=== PATIENT | male | born 1950 | race Caucasian/White ===

== ENCOUNTER 2020-03-25 23:24 | Emergency (ER) | payer MEDICARE, SELFPAY ==
[2020-03-25 23:25] VITALS: BP 191/84; PULSE 72; RESP 16; TEMP 36.2; O2SAT 98; BMI 24.8
--- NOTE | 2020-03-25 23:45 | ED_ITS ---
HPI - Wound/Laceration General Chief Complaint: Wound/Laceration Stated Complaint: cut on head Time Seen by Provider: 03/25/20 23:30 Source: patient Mode of arrival: Ambulatory History of Present Illness HPI narrative: 69-year-old gentleman with no significant medical issues or chronic medications presents with 2 small lacerations to his forehead after standing up and banging his head on the edge of a bed. He suffered no loss of consciousness and is not on blood thinners. Aside from the superficial lacerations has no other complaints today Related Data Allergies Allergy/AdvReac Type Severity Reaction Status Date / Time No Known Drug Allergies Allergy Verified 03/25/20 23:44 Review of Systems Review of Systems Narrative: Pertinent positive and negative findings as per HPI Remainder of review of systems is otherwise unremarkable for Constitutional: Fevers, chills, weakness ENT: No sore throat, neck pain, ear pain CV: Chest pain, palpitations, dyspnea on exertion Respiratory: Cough, wheeze, GI: Nausea, vomiting, diarrhea, Patient History Social History Smoking Status: Former smoker Smoking Status: Former smoker Substance Use Type: marijuana Exam Narrative Exam Narrative: General: Alert appropriate in no acute distress HEENT: There is a 2 cm laceration just above the right eyebrow and a a 1.5 cm partial-thickness laceration just superior to that. The larger wound is still bleeding somewhat. There is no associated abrasions or hematoma. Respiratory: Able to speak in full sentences, no obvious respiratory distress Skin: No obvious rashes, warm and dry Neurologic: Grossly intact no obvious asymmetries or abnormalities Psych, appropriate insight and affect, cooperative Initial Vital Signs Initial Vital Signs: Vital Signs Temperature 97.1 F L 03/25/20 23:25 Pulse Rate 72 03/25/20 23:25 Respiratory Rate 16 03/25/20 23:25 Blood Pressure 191/84 H 03/25/20 23:25 Pulse Oximetry 98 03/25/20 23:25 Procedures Laceration Repair Forehead, right side, : Site: face Side (If applicable): right Size (cm): 2 Description: linear Depth: simple, single layer Local Anesthetic: lidocaine 1% and with bicarb Amount of anesthesia used (mL): 2 Pre-repair: wound explored Skin layer closed with: nylon Size (cm): 4-0 Number of sutures: 3 Technique: simple, interrupted Mid forehead laceration: Site: face Side (If applicable): right Size (cm): 1.5 Description: linear Depth: simple, single layer Pre-repair: wound explored Skin layer closed with: dermabond Course Orders Ordered: Discontinued Medications Bacitracin (Bacitracin Oint 0.9 Gm Pckt) 1 applic TOP NOW ONE Stop: 03/25/20 23:49 Last Admin: 03/25/20 23:54 Dose: 1 applic Documented by: Lidocaine/Sodium Bicarbonate (Lido 1%/Sod Bicarb 8.4% (10ml) 10 Ml Syringe) 10 ml INJ NOW ONE Stop: 03/25/20 23:49 Last Admin: 03/25/20 23:54 Dose: 10 ml Documented by: Vital Signs Vital signs: Vital Signs - 8 hr 03/25/20 23:25 Temperature 97.1 F L Pulse Rate 72 Respiratory Rate 16 Blood Pressure 191/84 H Pulse Oximetry 98 MDM - Wound/Laceration MDM Narrative Medical decision making narrative: Otherwise healthy 69-year-old gentleman with 2 superficial lacerations to the right side of his forehead and no additional injuries or concerns. One is deep enough to require 3 sutures he tolerates this nicely. The other needs Dermabond and is nicely approximated when finished. He is safe for home discharge Discharge Plan Departure Patient Disposition: Home Clinical Impression: Laceration, Elevated blood pressure reading Instructions: DI for Laceration Repair, DI for High Blood Pressure, DI for Lace ration Repair -- Simple Activity Restrictions/Additional Instructions: Thank you for coming in this evening. The larger of your cuts did definitely need stitches. Three stitches were placed and can be removed on or about April 02. Please feel free to return to the emergency department and our nurses can remove them. The smaller of the wounds was shallow enough that skin glue was used to reapproximate those edges. You can take a shower you can let water gently run over the cuts and simply pat them dry. You can keep a Band-Aid over the stitches but that is not required As you noted, your blood pressure reading was elevated here in the emergency department. One episode of elevated blood pressure does not give you a diagnosis of hypertension, but does suggest that checking your blood pressure outside of the department and discussing this with your primary care physician makes sense If you have new or worsening symptoms or any complications with the wounds themselves, please feel free to come back to the emergency department.
[2020-03-25] MEDS: BACITRACIN OINT 0.9 GM PCKT 1 APPLIC TOP (23:54)
[2020-03-25] MEDS: LIDO 1%/SOD BICARB 8.4% (10ML) 10 ML SYRINGE INJ (23:54)
--- NOTE | 2020-03-26 00:11 | PC.NURSE ---
two lacerations. One smaller and superficial glued by provider. Other laceration closed with 3 sutures, antibiotic ointment applied
[2020-03-26 00:20] VITALS: BP 169/93; PULSE 76; RESP 12; O2SAT 98
== END 2020-03-26 00:20 | disposition home or self-care (01) ==
PROVIDERS: Emergency Provider Emergency Medicine
DX: S01.81XA Laceration without foreign body of other part of head, initial encounter (principal); W22.8XXA Striking against or struck by other objects, initial encounter; R03.0 Elevated blood-pressure reading, without diagnosis of hypertension
CPT/HCPCS: 12013; 99282; 99283

== ENCOUNTER 2021-09-14 12:08 | Emergency (ER) | payer MEDICARE, SELFPAY ==
[2021-09-14 12:13] VITALS: BP 126/81; PULSE 70; RESP 16; TEMP 36.6; O2SAT 98; BMI 25.8
--- NOTE | 2021-09-14 12:32 | DI.RAD.S_ITS ---
PROCEDURE: XR CHEST 1V INDICATIONS: chest pain TECHNIQUE: One view of the chest was acquired. COMPARISON: None. FINDINGS: Surgical changes and devices: None. Lungs and pleura: Lungs are clear. Small hiatal hernia. No pleural effusions or pneumothorax. Mediastinum: Mediastinal contours appear normal. Heart size is normal. Bones and chest wall: No suspicious bony lesions. Overlying soft tissues appear unremarkable. IMPRESSION: No acute cardiopulmonary abnormality. Small hiatal hernia. Dictated by: Anshu Lee M.D. on 09/14/2021 at 12:53 Approved by: Anshu Lee M.D. on 09/14/2021 at 12:54
--- NOTE | 2021-09-14 12:34 | ED_ITS ---
HPI - SOB/Dyspnea General Chief Complaint: Shortness of Breath/Dyspnea Stated Complaint: Sent by [facility] SOB Time Seen by Provider: 09/14/21 12:33 Source: patient Mode of arrival: Ambulatory Limitations: no limitations History of Present Illness HPI Narrative: The patient presents complaining of dyspnea on exertion, now occasional dyspnea at rest. He initially experienced symptoms about 1 year ago. He has no assoc iated chest pain. He is a nonsmoker. He was previously on lisinopril, lost weight and started working out and stopped the lisinopril. He has recently restarted lisinopril. Does not take aspirin. He has no history of lung disease, he has no known history of cardiac disease. He has no chest pain or dyspnea upon arrival. He has no diabetes of hyperlipidemia or high cholesterol. He probably has BPH. He does not take baby aspirin. He denies recent illness. It is noted that he had to go to the bathroom several times during his ER stay. He has no dysuria, just frequency. He also has nocturia. Related Data Previous Rx's Medication Instructions Recorded lisinopril 10 mg tablet 10 mg PO DAILY #30 tabs 09/14/21 metoprolol succinate 25 mg 25 mg PO DAILY #30 tabs 09/14/21 tablet,extended release 24 hr Allergies Allergy/AdvReac Type Severity Reaction Status Date / Time No Known Drug Allergies Allergy Verified 07/10/21 11:53 Review of Systems Constitutional Constitutional: Reports as per HPI, Denies body ache(s), Denies chills and Denies headache(s) ENT Ears, Nose, Mouth, and Throat: Denies dizziness, Denies headache(s), Denies sinus pain, Denies sinus pressure and Denies sore throat Cardiovascular Cardiovascular: Denies chest pain, Denies syncope, Denies rapid heart rate, Denies irregular heart rhythm and Reports dyspnea Respiratory Respiratory: Reports as per HPI, Denies chest congestion, Denies cough and Reports dyspnea Gastrointestinal Gastrointestinal: Denies abdominal pain, Denies change in stool character and Denies nausea Genitourinary Genitourinary: Denies dysuria, Denies dysuria, Denies testicular pain, Reports urinary frequency and Reports urinary hesitancy Musculoskeletal Musculoskeletal: Denies arthralgias, Denies back pain and Denies joint swelling Integumentary/Breasts Skin/Breast: Denies rash Neurologic Neurologic: Denies confusion, Denies dizziness, Denies syncope and Denies headache(s) Psychiatric Psychiatric: Denies confusion Hematologic/Lymphatic On Anticoagulants: No Patient History Medical History (Updated 09/14/21 @ 14:55 by Chi Puente MD) Hypertension Surgical History (Updated 09/14/21 @ 14:56 by Chi Puente MD) No significant past surgical history Social History Smoking Status: Former smoker Smoking Status: Former smoker Substance Use Type: marijuana Exam Initial Vital Signs Initial Vital Signs: Vital Signs Temperature 97.9 F 09/14/21 12:13 Pulse Rate 70 09/14/21 12:13 Respiratory Rate 16 09/14/21 12:13 Blood Pressure 126/81 09/14/21 12:13 Pulse Oximetry 98 09/14/21 12:13 Oxygen Delivery Method 09/14/21 12:13 Const General: cooperative, healthy appearing, well developed and well groomed Orientation: Orientation (Normal) [facility] Head: normocephalic and atraumatic Face and sinus: normal facial exam and sinuses nontender Mouth: oral mucosae normal Throat: posterior oropharynx normal Eyes General: Yes appearance normal, both eyes and all related structures Neck Neck: No JVD and other (No bruits) Chest Chest: normal inspection of the chest Resp Effort & Inspection: normal respiratory effort Auscultation: clear to auscultation bilaterally Cardio Rate: regular rate Rhythm: regular rhythm Heart Sounds: S1 normal, S2 normal, no click, no gallops and no murmurs GI Inspection: normal to inspection and non-distended Palpation: soft Auscultation: normal bowel sounds Back/Spine/Pelvis Back: normal to inspection Skin General: no rashes or lesions noted Neuro General: patient alert, patient awake, patient oriented x3 and no focal motor deficits Extrem General: normal to inspection, full ROM, no pedal edema and no calf tenderness Psych Appearance: grossly normal Course Course Course Narrative: The patient was asymptomatic upon arrival. His evaluation raises the concern of underlying CAD. He was started on metoprolol and aspirin, referred to local cardiology, Dr. Lua. Also, he very likely has BPH. He is referred to Dr. Bhatti, urology. Orders Ordered: ED Orders 09/14/21 12:32 XR chest 1V Stat 09/14/21 12:33 Complete Blood Count AUTO DIFF Stat Comprehensive Metabolic Panel Stat Lipase Stat Magnesium Stat Troponin & CK Cardiac Panel Stat Vital Signs Vital signs: Vital Signs - 8 hr 09/14/21 12:13 09/14/21 13:07 09/14/21 13:31 Temperature 97.9 F Pulse Rate 70 Respiratory Rate 16 Blood Pressure 126/81 174/89 H 152/69 H Pulse Oximetry 98 Oxygen Delivery Method Room Air MDM - SOB/Dyspnea Lab Data Result diagrams: 09/14/21 12:33 09/14/21 12:33 Labs: Lab Results 09/14/21 09/14/21 Range/Units 12:33 12:33 WBC 5.5 (4.5-11.0) X10^3/uL RBC 4.89 (4.5-5.9) X10^6/uL Hgb 14.0 (13.5-17.5) g/dL Hct 40.3 L (41-53) % MCV 82.3 (80-100) fL MCH 28.6 (26-34) PG MCHC 34.7 (30-36) % RDW 14.8 (11.6-14.8) % Plt Count 224 (150-400) X10^3/uL Neut % (Auto) 60.8 (50-75) % Lymph % (Auto) 24.2 L (25-40) % Rice % (Auto) 9.5 (3-14) % Eos % (Auto) 5.0 H (2-4) % Baso % (Auto) 0.5 (0-2) % Neut # (Auto) 3400 (0468-4155) /uL Lymph # (Auto) 1300 (9344-4034) /uL Rice # (Auto) 500 (0-900) /uL Eos # (Auto) 300 (0-450) /uL Baso # (Auto) 0 (0-100) /uL Sodium 141 (137-145) mmol/L Potassium 4.6 (3.4-5.1) mmol/L Chloride 108 H (98-107) mmol/L Carbon Dioxide 25 (22-32) mmol/L BUN 22 H (9-20) mg/dL Creatinine 0.78 (0.66-1.25) mg/dL Estimated GFR > 60 (>60) mL/min BUN/Creatinine Ratio 28.2 H (6-22) Glucose 101 (80-110) mg/dL Calcium 8.9 (8.4-10.2) mg/dL Magnesium 2.1 (1.6-2.3) mg/dL Total Bilirubin 0.5 (0.2-1.3) mg/dL AST 29 (17-59) IU/L ALT 15 (<50) IU/L Alkaline Phosphatase 78 (38-126) U/L Total Creatine Kinase 169 (55-170) U/L CK-MB (CK-2) 3.72 H (<2.37) ng/mL CK-MB (CK-2) Rel Index 2.2 (1.5-5.0) % Troponin I < 0.012 (0.01-0.034) ng/mL Total Protein 7.5 (6.3-8.2) g/dL Albumin 4.4 (3.5-5.0) g/dL Globulin 3.1 (1.7-4.1) g/dL Albumin/Globulin Ratio 1.4 (1.0-2.8) Lipase 105 (23-300) U/L Imaging Data Chest x-ray: Radiologist's Impression: No acute cardiopulmonary disease. ECG Data Attestation: I personally reviewed and interpreted this ECG as follows: (Normal sinus rhythm with occasional PVCs. Rate 66 beats per minute. Normal intervals. No acute ST elevation.) Discharge Plan Departure Patient Disposition: Home Clinical Impression: Dyspnea, Nocturia Instructions: Benign Prostatic Hyperplasia, DI for Shortness of Breath Activity Restrictions/Additional Instructions: Baby aspirin, 1 daily. Continue lisinopril 10 mg daily. Metoprolol 25 mg daily. Contact your doctor about a stress test, or follow-up with Dr. Lua, cardiology in [place], [place]. Call for an appointment. Your urinary issues indicate a large prostate. With your desire to avoid prescription medications, I would suggest [place] supplements. Follow-up with Urology, contact Dr. Bhatti for an appointment. Return the ER if you develop persistent shortness of breath or chest pain. Prescriptions: New metoprolol succinate 25 mg tablet extended release 24 hr 25 mg PO DAILY Qty: 30 1RF lisinopril 10 mg tablet 10 mg PO DAILY Qty: 30 1RF Referrals: Miscellaneous,Doctor, [Primary Care Provider] - Lamine Lua MD [Physician] - Marcel Bhatti MD [Physician] -
[2021-09-14 12:53] LABS: Add Manual Diff / Slide Review NO; Basophils Absolute Auto 0 /uL (0-100); Basophils Percent Auto 0.5 % (0-2); Eosinophils Absolute Auto 300 /uL (0-450); Hematocrit 40.3 % (41-53); Lymphocytes Absolute Auto 1300 /uL (1100-4500); Lymphocytes Percent Auto 24.2 % (25-40); Mean Corpuscular HGB Conc 34.7 % (30-36); Mean Corpuscular Hemoglobin 28.6 PG (26-34); Mean Corpuscular Volume 82.3 fL (80-100); Monocytes Absolute Auto 500 /uL (0-900); Monocytes Percent Auto 9.5 % (3-14); Neutrophils Absolute Auto 3400 /uL (1500-7000); Neutrophils Percent Auto 60.8 % (50-75); Platelet Count 224 X10^3/uL (150-400); Red Blood Cell Count 4.89 X10^6/uL (4.5-5.9); Red Cell Distribution Width 14.8 % (11.6-14.8); White Blood Cell Count 5.5 X10^3/uL (4.5-11.0)
[2021-09-14 13:00] LABS: Alanine Aminotransferase 15 IU/L (<50); Albumin 4.4 g/dL (3.5-5.0); Albumin Globulin Ratio 1.4 (1.0-2.8); Alkaline Phosphatase 78 U/L (38-126); Aspartate Aminotransferase 29 IU/L (17-59); BUN Creatinine Ratio 28.2 (6-22); Bilirubin Total 0.5 mg/dL (0.2-1.3); Blood Urea Nitrogen 22 mg/dL (9-20); Calcium 8.9 mg/dL (8.4-10.2); Carbon Dioxide 25 mmol/L (22-32); Chloride 108 mmol/L (98-107); Creatine Kinase 169 U/L (55-170); Estimated Glomerular Filt Rate > 60 mL/min (>60); Globulin 3.1 g/dL (1.7-4.1); Glucose 101 mg/dL (80-110); HEMOLYSIS < 15 (0-50); Lipase 105 U/L (23-300); Magnesium 2.1 mg/dL (1.6-2.3); Potassium 4.6 mmol/L (3.4-5.1); Sodium 141 mmol/L (137-145); Total Protein 7.5 g/dL (6.3-8.2)
[2021-09-14 13:07] VITALS: BP 174/89
[2021-09-14 13:12] LABS: Troponin I < 0.012 ng/mL (0.01-0.034)
[2021-09-14 13:16] LABS: CKMB % Relative Index 2.2 % (1.5-5.0); Creatine Kinase MB 3.72 ng/mL (<2.37)
[2021-09-14 13:31] VITALS: BP 152/69
[2021-09-14] MEDS: METOPROLOL IR 25 MG TABLET PO (14:40)
[2021-09-14] MEDS: ASPIRIN 81 MG CHEW TAB 324 MG PO (14:40)
[2021-09-14 14:42] VITALS: BP 165/88; PULSE 64; RESP 18; O2SAT 100
== END 2021-09-14 14:57 | disposition home or self-care (01) ==
PROVIDERS: Emergency Provider Emergency Medicine
DX: R06.00 Dyspnea, unspecified (principal); R35.1 Nocturia; R07.9 Chest pain, unspecified
CPT/HCPCS: 36415; 71045; 80053; 82550; 82553; 83690; 83735; 84484; 85025; 93005; 93010; 99283; 99284

== ENCOUNTER → 2021-10-04 15:38 | Outpatient (CLI) | payer MEDICARE, SELFPAY ==
[2021-10-04 17:48] LABS: NT-proBNP (BNP-Adult 18+) 135 pg/mL (<125)
== END ==
PROVIDERS: Referring Provider Nurse Practitioner Family; Visit Provider Nurse Practitioner Family
DX: R06.02 Shortness of breath (principal)
CPT/HCPCS: 36415; 83880

== ENCOUNTER → 2021-10-26 08:08 | Outpatient (CLI) | payer MEDICARE, SELFPAY ==
[2021-10-26 09:25] LABS: COVID19 -Nasal RAPID Negative (Negative)
== END ==
PROVIDERS: PCP Family Medicine; Referring Provider Internal Medicine; Visit Provider Internal Medicine
DX: Z20.822 Contact with and (suspected) exposure to COVID-19 (principal)
CPT/HCPCS: 87635; C9803

== ENCOUNTER → 2021-10-26 08:11 | Outpatient (CLI) | payer MEDICARE, SELFPAY ==
--- NOTE | 2021-10-31 09:11 | P.PFT.S_ITS ---
Pulmonary Function Test Referral & Results Date Patient Seen: 10/26/21 Requesting provider: Kavon Cantu Results: The spirometry demonstrates an FVC of 1.80 L which is 49% of predicted. The FEV1 was measured at 1.56 L which is 59% of predicted. The FEV1/FVC ratio was 87 which is 117% of predicted. Following the administration of bronchodilator there was a 32% improvement in FEV1 and a 115% improvement in the FEF 25-75%. Lung volumes show an SVC of 2.34 L which is 61% of predicted. The diffusing capacity was measured at 15.75 which is 61% of predicted. No hemoglobin value was provided, so no correction for potential anemia could be made, if appropriate. The maximum voluntary ventilation was reduced Interpretation: This study demonstrates moderate obstructive lung disease based on reduction FEV1 although FEV1/FVC ratio is preserved there is significant benefit following bronchodilator administration both in FEV1 and FEF 25-75% as above There is also moderate reduction in lung volumes suggesting moderate restrictive lung disease. This may well explain some of the abnormality in the FEV1 above although the benefit following bronchodilator does confirm the presence of o bstructive lung disease in my opinion There is also moderate reduction diffusing capacity suggesting disease at the capillary alveolar level Clinical correlation suggested
== END ==
PROVIDERS: PCP Family Medicine; Referring Provider Nurse Practitioner Family; Visit Provider Nurse Practitioner Family
DX: R06.02 Shortness of breath (principal); J45.909 Unspecified asthma, uncomplicated; Z87.891 Personal history of nicotine dependence; Z20.822 Contact with and (suspected) exposure to COVID-19
CPT/HCPCS: 87635; 94060; 94726; 94729; C9803

== ENCOUNTER → 2022-01-12 13:32 | Outpatient (CLI) | payer MEDICARE, SELFPAY ==
--- NOTE | 2022-01-12 13:34 | DI.CT.S_ITS ---
PROCEDURE: CT CHEST WO CON INDICATIONS: SHORTNESS OF BREATH TECHNIQUE: Noncontrast 5 mm thick sections acquired from the pulmonary apices to the posterior costophrenic angles. 1 mm lung window, 5 mm thick coronal and sagittal and 7 mm axial MIP reformats were then acquired. For radiation dose reduction, the following was used: automated exposure control, adjustment of mA and/or kV according to patient size. COMPARISON: [facility], CR, XR CHEST 1V, 09/14/2021, 12:31. FINDINGS: Image quality: Excellent. Lungs and pleura: No acute air space opacities. No pleural effusions or pneumothorax. Central and peripheral airways are patent and normal in caliber. Mediastinum: Heart size is normal. No pericardial effusion. At least moderate coronary artery calcification is seen. No mediastinal adenopathy by size criteria. Thoracic aorta is normal in size. The pulmonary arteries are mildly prominent in size, with the right main pulmonary artery measuring 2.7 cm. Esophagus is normal in caliber. There is a moderate hiatal hernia. Bones and chest wall: No suspicious bony lesions. No vertebral body compression fractures. Age-appropriate bony degenerative changes are seen. Accentuated thoracic kyphosis is seen. No axillary or supraclavicular adenopathy by size criteria. Thyroid gland demonstrates no significant noncontrast abnormality. Abdomen: Visualized upper abdominal solid organs and bowel loops appear normal in the absence of contrast. IMPRESSION: Clear lungs. Prominent pulmonary arteries. This is most typically an idiopathic finding. However, please correlate with pulmonary hypertension. Incidental note is made of: At least moderate coronary artery calcification Moderate hiatal hernia Accentuated thoracic kyphosis Dictated by: Marvin Taylor M.D. on 01/12/2022 at 17:53 Approved by: Marvin Taylor M.D. on 01/12/2022 at 17:55
== END ==
PROVIDERS: PCP Family Medicine; Referring Provider Internal Medicine Critical Care Medicine; Visit Provider Internal Medicine Critical Care Medicine
DX: J98.4 Other disorders of lung (principal); R06.02 Shortness of breath; R06.00 Dyspnea, unspecified; I25.10 Atherosclerotic heart disease of native coronary artery without angina pectoris; K44.9 Diaphragmatic hernia without obstruction or gangrene; M40.204 Unspecified kyphosis, thoracic region
CPT/HCPCS: 71250

== ENCOUNTER → 2022-03-29 10:18 | Outpatient (CLI) | payer MEDICARE, SELFPAY ==
[2022-03-29 13:40] LABS: Hematocrit 37.9 % (41-53); Hemoglobin 12.6 g/dL (13.5-17.5); Mean Corpuscular HGB Conc 33.4 % (30-36); Mean Corpuscular Volume 77.9 fL (80-100); Platelet Count 232 X10^3/uL (150-400); Red Blood Cell Count 4.86 X10^6/uL (4.5-5.9); Red Cell Distribution Width 14.5 % (11.6-14.8); White Blood Cell Count 4.7 X10^3/uL (4.5-11.0)
[2022-03-29 13:58] LABS: Alanine Aminotransferase 19 IU/L (<50); Albumin 4.2 g/dL (3.5-5.0); Albumin Globulin Ratio 1.2 (1.0-2.8); Alkaline Phosphatase 76 U/L (38-126); Aspartate Aminotransferase 25 IU/L (17-59); BUN Creatinine Ratio 19.4 (6-22); Bilirubin Total 0.6 mg/dL (0.2-1.3); Blood Urea Nitrogen 20 mg/dL (9-20); Calcium 8.6 mg/dL (8.4-10.2); Carbon Dioxide 28 mmol/L (22-32); Chloride 103 mmol/L (98-107); Cholesterol 121 mg/dL (140-199); Estimated Glomerular Filt Rate > 60 mL/min (>60); Globulin 3.4 g/dL (1.7-4.1); Glucose 96 mg/dL (80-110); HDL Cholesterol 44 mg/dL (40-60); HEMOLYSIS < 15 (0-50); LDL Cholesterol Calculated 47 mg/dL (<100); Potassium 4.3 mmol/L (3.4-5.1); Sodium 143 mmol/L (137-145); Total Protein 7.6 g/dL (6.3-8.2); Triglycerides 149 mg/dL (35-150)
[2022-03-29 14:18] LABS: TSH w/ Reflex to FT4 2.36 uIU/mL (0.47-4.68)
[2022-03-29 14:27] LABS: Prostate Specific Antigen 2.28 ng/mL (0.10-4.00)
[2022-03-29 17:04] LABS: HEMOLYSIS < 15 (0-50); Iron 53 ug/dL (49-181)
[2022-03-29 17:14] LABS: Percent Iron Saturation 12 % (20-50); Total Iron Binding Capacity 449 ug/dL (261-462); Transferrin 310 mg/dL (206-381)
[2022-03-29 17:43] LABS: Ferritin 8 ng/mL (18-464)
== END ==
PROVIDERS: PCP Internal Medicine; Referring Provider Internal Medicine; Visit Provider Internal Medicine
DX: E78.2 Mixed hyperlipidemia (principal); N40.1 Benign prostatic hyperplasia with lower urinary tract symptoms; I10 Essential (primary) hypertension; N13.8 Other obstructive and reflux uropathy; Z86.19 Personal history of other infectious and parasitic diseases; D64.9 Anemia, unspecified
CPT/HCPCS: 36415; 80053; 80061; 82728; 83540; 83550; 84153; 84443; 85027; 87522

== ENCOUNTER → 2022-04-11 10:16 | Outpatient (CLI) | payer MEDICARE, SELFPAY ==
[2022-04-11 11:39] LABS: Occult Blood 1 Negative (Negative)
[2022-04-11 11:40] LABS: Occult Blood 2 Negative (Negative); Occult Blood 3 Negative (Negative)
== END ==
PROVIDERS: PCP Internal Medicine; Referring Provider Internal Medicine; Visit Provider Internal Medicine
DX: D50.9 Iron deficiency anemia, unspecified (principal)
CPT/HCPCS: 82270

== ENCOUNTER → 2022-05-08 09:21 | Outpatient (CLI) | payer MEDICARE, SELFPAY ==
[2022-05-08 10:15] LABS: Add Manual Diff / Slide Review NO; Basophils Absolute Auto 0 /uL (0-100); Basophils Percent Auto 0.4 % (0-2); Eosinophils Absolute Auto 200 /uL (0-450); Eosinophils Percent Auto 3.2 % (2-4); Hematocrit 39.3 % (41-53); Lymphocytes Absolute Auto 1200 /uL (1100-4500); Lymphocytes Percent Auto 21.4 % (25-40); Mean Corpuscular HGB Conc 33.1 % (30-36); Mean Corpuscular Hemoglobin 25.8 PG (26-34); Monocytes Absolute Auto 500 /uL (0-900); Monocytes Percent Auto 9.3 % (3-14); Neutrophils Absolute Auto 3600 /uL (1500-7000); Neutrophils Percent Auto 65.7 % (50-75); Platelet Count 248 X10^3/uL (150-400); Red Blood Cell Count 5.04 X10^6/uL (4.5-5.9); Red Cell Distribution Width 15.9 % (11.6-14.8); White Blood Cell Count 5.4 X10^3/uL (4.5-11.0)
[2022-05-08 10:38] LABS: HEMOLYSIS < 15 (0-50); Iron 120 ug/dL (49-181)
[2022-05-08 10:49] LABS: Percent Iron Saturation 28 % (20-50); Total Iron Binding Capacity 427 ug/dL (261-462); Transferrin 291 mg/dL (206-381)
[2022-05-08 11:10] LABS: Ferritin 14 ng/mL (18-464)
== END ==
PROVIDERS: PCP Internal Medicine; Referring Provider Internal Medicine; Visit Provider Internal Medicine
DX: D50.9 Iron deficiency anemia, unspecified (principal)
CPT/HCPCS: 36415; 82728; 83540; 83550; 85025

== ENCOUNTER → 2022-08-08 09:05 | Outpatient (CLI) | payer MEDICARE, SELFPAY ==
[2022-08-08 10:25] LABS: Hemoglobin 14.6 g/dL (13.5-17.5); Mean Corpuscular HGB Conc 33.3 % (30-36); Mean Corpuscular Hemoglobin 27.3 PG (26-34); Platelet Count 223 X10^3/uL (150-400); Red Blood Cell Count 5.36 X10^6/uL (4.5-5.9); Red Cell Distribution Width 16.2 % (11.6-14.8)
[2022-08-08 10:51] LABS: HEMOLYSIS < 15 (0-50); Iron 65 ug/dL (49-181)
[2022-08-08 11:02] LABS: Percent Iron Saturation 16 % (20-50); Total Iron Binding Capacity 416 ug/dL (261-462); Transferrin 315 mg/dL (206-381)
[2022-08-08 11:22] LABS: Ferritin 10 ng/mL (18-464)
== END ==
PROVIDERS: PCP Internal Medicine; Referring Provider Internal Medicine; Visit Provider Internal Medicine
DX: D50.9 Iron deficiency anemia, unspecified (principal)
CPT/HCPCS: 36415; 82728; 83540; 83550; 85027

== ENCOUNTER → 2022-09-04 11:17 | Outpatient (CLI) | payer MEDICARE, SELFPAY | PROVIDERS: PCP Internal Medicine; Visit Provider Nurse Practitioner Family | DX: J02.9 Acute pharyngitis, unspecified (principal) | CPT/HCPCS: 87070 ==

== ENCOUNTER → 2023-02-05 07:18 | Outpatient (CLI) | payer MEDICARE, SELFPAY ==
[2023-02-05 09:05] LABS: Cholesterol 157 mg/dL (140-199); HDL Cholesterol 45 mg/dL (40-60); HEMOLYSIS < 15 (0-50); Iron 108 ug/dL (49-181); LDL Cholesterol Calculated 90 mg/dL (<100); Triglycerides 110 mg/dL (35-150)
[2023-02-05 09:17] LABS: Percent Iron Saturation 32 % (20-50); Total Iron Binding Capacity 338 ug/dL (261-462); Transferrin 283 mg/dL (206-381)
[2023-02-05 09:40] LABS: Ferritin 16 ng/mL (18-464)
== END ==
PROVIDERS: PCP Internal Medicine; Referring Provider Internal Medicine Cardiovascular Disease; Visit Provider Internal Medicine Cardiovascular Disease
DX: E78.5 Hyperlipidemia, unspecified (principal); D50.9 Iron deficiency anemia, unspecified
CPT/HCPCS: 36415; 80061; 82728; 83540; 83550

== ENCOUNTER → 2023-08-12 07:51 | Outpatient (CLI) | payer MEDICARE, SELFPAY ==
[2023-08-12 08:58] LABS: Alanine Aminotransferase 15 IU/L (<50); Albumin 4.2 g/dL (3.5-5.0); Albumin Globulin Ratio 1.5 (1.0-2.8); Alkaline Phosphatase 80 U/L (38-126); Aspartate Aminotransferase 25 IU/L (17-59); BUN Creatinine Ratio 20.4 (6-22); Bilirubin Total 0.8 mg/dL (0.2-1.3); Blood Urea Nitrogen 19 mg/dL (9-20); Calcium 8.8 mg/dL (8.4-10.2); Carbon Dioxide 30 mmol/L (22-32); Chloride 107 mmol/L (98-107); Cholesterol 168 mg/dL (140-199); Estimated Glomerular Filt Rate > 60 mL/min (>60); Globulin 2.8 g/dL (1.7-4.1); Glucose 110 mg/dL (80-110); HDL Cholesterol 56 mg/dL (40-60); HEMOLYSIS < 15 (0-50); LDL Cholesterol Calculated 93 mg/dL (<100); Potassium 4.5 mmol/L (3.4-5.1); Sodium 141 mmol/L (137-145); Triglycerides 97 mg/dL (35-150)
[2023-08-12 15:30] LABS: Ferritin 10 ng/mL (18-464)
== END ==
LOC: LAB 07:52
PROVIDERS: PCP Internal Medicine; Referring Provider Nurse Practitioner; Visit Provider Nurse Practitioner
DX: I10 Essential (primary) hypertension (principal); D50.9 Iron deficiency anemia, unspecified
CPT/HCPCS: 36415; 80053; 80061; 82728

== ENCOUNTER → 2023-08-26 08:34 | Outpatient (CLI) | payer MEDICARE, SELFPAY ==
[2023-08-26 09:55] LABS: Hematocrit 41.5 % (41-53); Hemoglobin 14.1 g/dL (13.5-17.5); Mean Corpuscular HGB Conc 33.9 % (30-36); Mean Corpuscular Hemoglobin 27.5 PG (26-34); Mean Corpuscular Volume 81.1 fL (80-100); Platelet Count 223 X10^3/uL (150-400); Red Blood Cell Count 5.12 X10^6/uL (4.5-5.9); Red Cell Distribution Width 14.3 % (11.6-14.8); White Blood Cell Count 5.1 X10^3/uL (4.5-11.0)
== END ==
PROVIDERS: PCP Internal Medicine; Referring Provider Internal Medicine; Visit Provider Internal Medicine
DX: D50.9 Iron deficiency anemia, unspecified (principal)
CPT/HCPCS: 36415; 85027

== ENCOUNTER → 2023-09-03 17:19 | Outpatient (CLI) | payer MEDICARE, SELFPAY ==
[2023-09-03 17:54] LABS: Appearance Urine UA CLEAR; Bilirubin Urine UA NEGATIVE (NEGATIVE); Color Urine UA YELLOW; Glucose Urine UA TRACE g/dL (Negative); Ketones Urine UA NEGATIVE (NEGATIVE); Leukocyte Esterase Urine UA NEGATIVE (NEGATIVE); Nitrite Urine UA NEGATIVE (Negative); Occult Blood Urine UA TRACE-INTACT (Negative); Protein Urine UA NEGATIVE (Negative); Specific Gravity Urine UA >=1.030 (1.000-1.035); Urobilinogen Urine UA 0.2 E.U./dL (0.2)
[2023-09-03 18:03] LABS: Bacteria Urine Occasional (0-1); Culture Indicated Urine Cult Not Indicated; Mucus Urine 2+ (Negative); RBC Urine 0-1/HPF (0-5/HPF); Squamous Epithelial Cell Urine 0-1 /HPF (0-5/HPF); Urine Volume 10mL (spun); WBC Urine 0-1/HPF (0-5/HPF)
== END ==
PROVIDERS: PCP Internal Medicine; Referring Provider Urology; Visit Provider Urology
DX: R39.14 Feeling of incomplete bladder emptying (principal); R35.0 Frequency of micturition
CPT/HCPCS: 81001

== ENCOUNTER → 2024-02-07 08:40 | Outpatient (CLI) | payer MEDICARE, SELFPAY ==
[2024-02-07 09:44] LABS: Alanine Aminotransferase 18 IU/L (<50); Albumin Globulin Ratio 1.3 (1.0-2.8); Alkaline Phosphatase 80 U/L (38-126); Aspartate Aminotransferase 25 IU/L (17-59); BUN Creatinine Ratio 23.3 (6-22); Bilirubin Total 0.6 mg/dL (0.2-1.3); Blood Urea Nitrogen 20 mg/dL (9-20); Calcium 9.2 mg/dL (8.4-10.2); Carbon Dioxide 29 mmol/L (22-32); Chloride 105 mmol/L (98-107); Cholesterol 196 mg/dL (140-199); Estimated Glomerular Filt Rate > 60 mL/min (>60); Globulin 3.1 g/dL (1.7-4.1); Glucose 100 mg/dL (80-110); HDL Cholesterol 56 mg/dL (40-60); HEMOLYSIS < 15 (0-50); LDL Cholesterol Calculated 124 mg/dL (<100); Potassium 4.3 mmol/L (3.4-5.1); Sodium 137 mmol/L (137-145); Total Protein 7.1 g/dL (6.3-8.2); Triglycerides 79 mg/dL (35-150)
== END ==
PROVIDERS: PCP Internal Medicine; Referring Provider Nurse Practitioner; Visit Provider Nurse Practitioner
DX: I10 Essential (primary) hypertension (principal); E78.5 Hyperlipidemia, unspecified
CPT/HCPCS: 36415; 80053; 80061

== ENCOUNTER → 2024-04-15 07:53 | Outpatient (CLI) | payer MEDICARE, SELFPAY ==
--- NOTE | 2024-04-15 07:55 | DI.ECHO.S_ITS ---
[facility]+ [facility] : : [id number] [place] : : [id number] : : Phone: [phone] Echocardiogram Report + + :Name: BENNETT SHAFFER Study Date: 04/15/2024 Height: 64 in : :[employer] ReadingLocation: Weight: 162 lb : : Gender: Male BSA: 1.8 m2 : :: 1950 Age: 73 yrs BP: 142/80 mmHg: :Reason For Study: MITRAL VALVE INSUFFICIENCY : :Ordering Physician: JUDIE, : :ENRIQUETA Munoz Performed By: Dayne Souza : :Referring: ENRIQUETA DIMAS : + + Interpretation Summary The patient was in normal sinus rhythm during the exam. The patient had frequent PVCs during the exam. The left ventricle is normal in size. The ejection fraction is estimated to be 55-60%. The right ventricle is mildly dilated. The right ventricular systolic function is normal. There is severe biatrial enlargement. There is prolapse of the posterior mitral valve leaflet(s). There is moderate mitral regurgitation. The mitral regurgitant jet is eccentrically directed. There is moderate tricuspid regurgitation. The right ventricular systolic pressure is estimated to be at least 66 mmHg based on an estimated right atrial pressure of 15 mm Hg. Severe pulmonary hypertension. Patient had JEAN-CLAUDE on August 22, 2022: That time posterior mitral leaflet prolapse with moderate MR, LVEF 60 to 65%, normal RV function, mild to moderate TR and PASP 43 mmHg. Procedure: A two-dimensional transthoracic echocardiogram with color flow and Doppler was performed. The study quality was technically good. There is no prior echocardiogram noted for this patient. The patient had frequent PVCs during the exam. The heart rate ranged between 58-74 bpm during the study. The patient was in normal sinus rhythm during the exam. Left Ventricle: The left ventricle is normal in size. There is normal left ventricular wall thickness. There is no thrombus. The ejection fraction is estimated to be 55-60%. There are no focal wall motion abnormalities. MV E/A: 1.0 Med Peak E' Minh: 6.1 cm/sec E/E' med: 11.0. Right Ventricle: The right ventricle is mildly dilated. The right ventricular systolic function is normal. There has been no significant change since the previous study. Atria: There is severe biatrial enlargement. There is no Doppler evidence for an atrial septal defect. Mitral Valve: There is moderate mitral annular calcification. The mitral valve leaflets appear mildly thickened, but open well. The mitral valve leaflets are mildly calcified. There is prolapse of the posterior mitral valve leaflet(s). No significant mitral valve stenosis. There is moderate mitral regurgitation. The mitral regurgitant jet is eccentrically directed. Aortic Valve: The aortic valve is trileaflet. The aortic valve opens well. The aortic valve is mildly calcified. No aortic regurgitation is present. Tricuspid Valve: The tricuspid valve is normal. There is moderate tricuspid regurgitation. The right ventricular systolic pressure is estimated to be at least 66 mmHg based on an estimated right atrial pressure of 15 mm Hg. Pulmonic Valve: The pulmonic valve leaflets are thin and pliable; valve motion is normal. There is trace pulmonic regurgitation. Great Vessels: The aortic root is normal size. The dimensions of the ascending aorta are normal. The pulmonary artery is normal size. The IVC is dilated (diameter is greater than 2.1 cm) and it collapses less than 50% with a sniff. This suggests a high right atrial pressure of 15 mm Hg. Pericardium/ Pleura There is no pericardial effusion. There is no pleural effusion. MMode/2D Measurements & Calculations LVIDd: 4.4 cm LVOT diam: 2.2 cm LVIDs: 3.2 cm Ao root diam: 3.5 cm FS: 25.8 % asc Aorta Diam: 3.6 cm EPSS: 0.43 cm Ao Arch Diam (Prox Trans): 2.7 cm IVSd: 0.93 cm LVPWd: 1.1 cm LV altamirano. diameter/BSA (cm/m^2): 2.4 LV sys. diameter/BSA (cm/m^2): 1.8 LA A2 area: 27.4 cm2 RA long axis: 5.8 cm LA A4 area: 29.5 cm2 RA area: 23.3 cm2 LA length (vol): 6.4 cm RA vol: 79.5 ml LA vol: 106.4 ml RA : 44.5 ml/m2 LA vol index: 59.5 ml/m2 IVC diam: 2.3 cm RVD1 (basal): 4.3 cm RVD2 (mid): 3.5 cm TAPSE: 2.5 cm Doppler Measurements & Calculations Ao V2 max: 156.2 cm/sec LVOT Max Minh: 120.9 cm/sec Ao V2 mean: 101.5 cm/sec LV V1 max P.9 mmHg Ao max P.8 mmHg LV V1 VTI: 28.1 cm Ao mean P.8 mmHg LAISHA(I,D): 3.1 cm2 Ao V2 VTI: 34.4 cm LAISHA(V,D): 2.9 cm2 sev ratio: 0.82 LAISHA indexed to BSA (cm^2/m^2): 1.7 MV E max minh: 67.3 cm/sec TR max minh: 356.6 cm/sec MV A max minh: 67.0 cm/sec TR max P.9 mmHg MV E/A: 1.0 PA V2 max: 83.5 cm/sec Med Peak E' Minh: 6.1 cm/sec PA V2 mean: 55.9 cm/sec E/E' med: 11.0 PA mean P.4 mmHg Lat Peak E' Minh: 12.1 cm/sec PA pr(Accel): 49.9 mmHg E/E' lat: 5.5 E/e' average: 8.3 MV dec time: 0.23 sec SV(LVOT): 105.3 ml Reading Physician:02:02 PM
== END ==
PROVIDERS: PCP Internal Medicine; Referring Provider Nurse Practitioner; Visit Provider Nurse Practitioner
DX: I34.0 Nonrheumatic mitral (valve) insufficiency (principal); I34.1 Nonrheumatic mitral (valve) prolapse
CPT/HCPCS: 93306

== ENCOUNTER → 2024-05-05 07:48 | Outpatient (CLI) | payer MEDICARE, SELFPAY ==
[2024-05-05 09:13] LABS: BUN Creatinine Ratio 20.8 (6-22); Blood Urea Nitrogen 21 mg/dL (9-20); Calcium 9.5 mg/dL (8.4-10.2); Carbon Dioxide 32 mmol/L (22-32); Chloride 99 mmol/L (98-107); Cholesterol 161 mg/dL (140-199); Estimated Glomerular Filt Rate > 60 mL/min (>60); Glucose 105 mg/dL (80-110); HDL Cholesterol 51 mg/dL (40-60); HEMOLYSIS < 15 (0-50); LDL Cholesterol Calculated 98 mg/dL (<100); Potassium 4.3 mmol/L (3.4-5.1); Sodium 138 mmol/L (137-145); Triglycerides 60 mg/dL (35-150)
== END ==
PROVIDERS: PCP Internal Medicine; Referring Provider Nurse Practitioner; Visit Provider Nurse Practitioner
DX: E78.5 Hyperlipidemia, unspecified (principal); I10 Essential (primary) hypertension
CPT/HCPCS: 36415; 80048; 80061

== ENCOUNTER → 2024-08-23 12:27 | Outpatient (CLI) | payer MEDICARE, SELFPAY ==
--- NOTE | 2024-08-23 12:35 | DI.RAD.S_ITS ---
PROCEDURE: XR CHEST 2V INDICATIONS: dyspnea TECHNIQUE: 2 views of the chest were acquired. COMPARISON: [facility], CR, XR CHEST 1V, 09/14/2021, 12:31. FINDINGS: Heart, mediastinum and pulmonary vascular: Heart is normal in size and configuration. Moderate hiatal hernia noted. Mediastinum otherwise normal Pulmonary vascular is normal. Lungs: Minor right basilar atelectasis. Pleural spaces: Normal-no effusions or pneumothorax. Bones and soft tissues: Few old left rib fracture seen as before. Moderate compression fractures throughout the upper midthoracic spine are most likely chronic. IMPRESSION: Moderate hiatal hernia. No acute cardiopulmonary disease Dictated by: Tito Gerardo M.D. on 08/24/2024 at 11:05 Approved by: Tito Gerardo M.D. on 08/24/2024 at 11:07
[2024-08-23 13:43] LABS: Add Manual Diff / Slide Review NO; Basophils Absolute Auto 0 /uL (0-100); Basophils Percent Auto 0.6 % (0-2); Eosinophils Absolute Auto 400 /uL (0-450); Eosinophils Percent Auto 6.9 % (2-4); Hematocrit 37.8 % (41-53); Hemoglobin 12.5 g/dL (13.5-17.5); Lymphocytes Absolute Auto 1300 /uL (1100-4500); Mean Corpuscular Hemoglobin 24.5 PG (26-34); Mean Corpuscular Volume 74.1 fL (80-100); Monocytes Absolute Auto 500 /uL (0-900); Monocytes Percent Auto 8.9 % (3-14); Neutrophils Absolute Auto 2900 /uL (1500-7000); Neutrophils Percent Auto 57.6 % (50-75); Platelet Count 242 X10^3/uL (150-400); Red Blood Cell Count 5.09 X10^6/uL (4.5-5.9); Red Cell Distribution Width 16.5 % (11.6-14.8); White Blood Cell Count 5.1 X10^3/uL (4.5-11.0)
[2024-08-23 14:17] LABS: Alanine Aminotransferase 18 IU/L (<50); Albumin 4.5 g/dL (3.5-5.0); Albumin Globulin Ratio 1.5 (1.0-2.8); Alkaline Phosphatase 91 U/L (38-126); Aspartate Aminotransferase 27 IU/L (17-59); Bilirubin Total 0.6 mg/dL (0.2-1.3); Blood Urea Nitrogen 20 mg/dL (9-20); Calcium 9.4 mg/dL (8.4-10.2); Carbon Dioxide 27 mmol/L (22-32); Chloride 101 mmol/L (98-107); Estimated Glomerular Filt Rate > 60 mL/min (>60); Glucose 135 mg/dL (70-99); HEMOLYSIS < 15 (0-50); Potassium 4.7 mmol/L (3.4-5.1); Sodium 137 mmol/L (137-145); Total Protein 7.5 g/dL (6.3-8.2)
[2024-08-23 14:50] LABS: TSH w/ Reflex to FT4 3.67 uIU/mL (0.47-4.68)
== END ==
PROVIDERS: PCP Internal Medicine; Referring Provider Internal Medicine; Visit Provider Internal Medicine
DX: R06.09 Other forms of dyspnea (principal); R06.02 Shortness of breath; J45.20 Mild intermittent asthma, uncomplicated; N40.1 Benign prostatic hyperplasia with lower urinary tract symptoms; N13.8 Other obstructive and reflux uropathy; K44.9 Diaphragmatic hernia without obstruction or gangrene
CPT/HCPCS: 36415; 71046; 80053; 84443; 85025

== ENCOUNTER → 2024-09-07 08:13 | Outpatient (CLI) | payer MEDICARE, SELFPAY | LOC: RESP 08:13 | PROVIDERS: PCP Internal Medicine; Referring Provider Internal Medicine; Visit Provider Internal Medicine | DX: J45.20 Mild intermittent asthma, uncomplicated (principal); R06.09 Other forms of dyspnea; Z87.891 Personal history of nicotine dependence; R94.2 Abnormal results of pulmonary function studies | CPT/HCPCS: 94060; 94726; 94729 ==

== ENCOUNTER → 2025-02-02 17:01 | Outpatient (CLI) | payer MEDICARE, SELFPAY ==
[2025-02-02 18:13] LABS: Hematocrit 33.4 % (41-53); Hemoglobin 10.8 g/dL (13.5-17.5); Mean Corpuscular HGB Conc 32.2 % (30-36); Mean Corpuscular Hemoglobin 22.1 PG (26-34); Mean Corpuscular Volume 68.7 fL (80-100); Platelet Count 263 X10^3/uL (150-400)
[2025-02-02 18:25] LABS: HEMOLYSIS < 15 (0-50); Iron 29 ug/dL (49-181)
[2025-02-02 18:27] LABS: Alanine Aminotransferase 18 IU/L (<50); Albumin 4.5 g/dL (3.5-5.0); Albumin Globulin Ratio 1.6 (1.0-2.8); Alkaline Phosphatase 89 U/L (38-126); Blood Urea Nitrogen 22 mg/dL (9-20); Calcium 9.0 mg/dL (8.4-10.2); Carbon Dioxide 26 mmol/L (22-32); Chloride 103 mmol/L (98-107); Cholesterol 188 mg/dL (140-199); Estimated Glomerular Filt Rate > 60 mL/min (>60); Globulin 2.9 g/dL (1.7-4.1); Glucose 94 mg/dL (70-99); HDL Cholesterol 54 mg/dL (40-60); HEMOLYSIS < 15 (0-50); Potassium 4.5 mmol/L (3.4-5.1); Sodium 138 mmol/L (137-145); Total Protein 7.4 g/dL (6.3-8.2); Triglycerides 74 mg/dL (35-150)
[2025-02-02 18:36] LABS: Percent Iron Saturation 7 % (20-50); Total Iron Binding Capacity 424 ug/dL (261-462); Transferrin 364 mg/dL (206-381)
[2025-02-02 18:57] LABS: TSH w/ Reflex to FT4 2.42 uIU/mL (0.47-4.68)
[2025-02-02 18:58] LABS: Prostate Specific Antigen 4.06 ng/mL (0.10-4.00)
[2025-02-02 19:02] LABS: Ferritin 8 ng/mL (18-464)
== END ==
PROVIDERS: PCP Internal Medicine; Referring Provider Internal Medicine; Visit Provider Internal Medicine
DX: R06.09 Other forms of dyspnea (principal); D50.9 Iron deficiency anemia, unspecified; E78.2 Mixed hyperlipidemia; N40.1 Benign prostatic hyperplasia with lower urinary tract symptoms; N13.8 Other obstructive and reflux uropathy
CPT/HCPCS: 36415; 80053; 80061; 82728; 83540; 83550; 84153; 84443; 85027